=== PATIENT | female | born 1985 | race Caucasian/White ===

== ENCOUNTER 2019-06-21 19:18 | Emergency (ER) | payer MEDICAID ==
[~2019-06-21] VITALS: Ht 165.1 cm; Wt 56.7 kg
[2019-06-21 19:35] VITALS: BP 108/66
[2019-06-21] MEDS ORDERED: methylPREDNISolone SS 125 MG/2 ML VIAL IM ONE (22:55)
[2019-06-21] MEDS ORDERED: ALBUTEROL SULFATE/IPRATROPIU 3 ML SOL IH ONE ×2 (22:55→23:30)
--- NOTE | 2019-06-21 23:23 | NUR ---
33 Y/O FEMALE PRESENTS TO ED, C/O OF COUGH. PT STATES SHE HAS COUGH X4 DAYS, PRODUCTIVE WITH SPUTUM, CLEAR. C/O OF MILD CHEST PAIN 3/10 DOES NOT RADIATE. C/O SOB, LUNG SOUNDS WHEEZING UPPER LOBES, SPO2 AT 97% ROOM AIR. PT VSS. ERMD AWARE. WILL CONTINUE TO MONITOR.
[2019-06-22 00:22] VITALS: BP 108/66
--- NOTE | 2019-06-22 00:22 | NUR ---
PT DISCHARGED WITH PAPERWORK. RX ATROVENT, PREDNISONE, ALBUTEROL. EDUCATED PT REGARDING MEDICATIONS AND S/E. EDUCATED PT REGARDING D/C DIAGNOSIS AND INSTRUCTIONS. PT VERBALIZED UNDERSTANDING OF TEACHING. TOLD PT TO FOLLOW UP WITH PCP AND WHEN TO RETURN TO ED. PT VSS, SOB/RESPIRATORY DISTRESS. ALL QUESTIONS ANSWERED.
== END 2019-06-22 00:22 | disposition home or self-care (01) ==
LOC: MED 19:18
DX: J45.901 Unspecified asthma with (acute) exacerbation (principal)
CPT/HCPCS: 94640; 94760; 96372; 99284; J2930; J7620; 99283